=== PATIENT | female | born 1940 | race Caucasian/White ===

== ENCOUNTER → 2017-10-26 | Day surgery (SDC) | payer MEDICARE, BC ==
[~2017-10-26] MED LIST: Bupivacaine 0.25% 10 ML SDV ONE; Dexamethasone 4 MG/ML SDV ONE; Diphtheria,Pertussis(Acell),Tetanus Vaccine 0.5 ML SDV IM ONE; HYDROmorphone 0.5 MG/0.5 ML Syringe IVPUSH ONE; HYDROmorphone 0.5 MG/0.5 ML Syringe IVPUSH PRN; HYDROmorphone 0.5 MG/0.5 ML Syringe ONE; Iopamidol 755 Mg/ML 100 ML Bottle IVPUSH ONE; Lidocaine 1% 4 ML ONE; Ondansetron 4 MG/2 ML SDV IVPUSH PRN; Ondansetron 4 MG/2 ML SDV ONE; Phenylephrine/Normal Saline 100 MCG/ML 10 ML Syringe ONE; Propofol 200 MG/20 ML SDV ONE; Sodium Chloride 0.9% 1,000 ML IV ONE; Sodium Chloride 0.9% 10 ML Syringe FLUSH PRN; ceFAZolin 1 GM Vial ONE; ceFAZolin 1 GM in Premix Bag 1 BAG IV ONE; diphenhydrAMINE 50 MG/ML SDV IVPUSH PRN; ePHEDrine/Normal Saline 25 MG/5 ML Syringe ONE; fentaNYL 100 MCG/2 ML SDV IVPUSH ONE; fentaNYL 100 MCG/2 ML SDV IVPUSH PRN; fentaNYL 100 MCG/2 ML SDV ONE; fentaNYL 250 MCG/5 ML SDV ONE
--- NOTE | 2017-10-26 22:35 | EDM.PDOC ---
ED HPI GENERAL MEDICAL PROBLEM - General Chief Complaint: Upper Extremity Injury/Pain Stated Complaint: [facility] Time Seen by Provider: 10/26/17 21:13 Source of Information: Reports: Patient History Limitations: Reports: No Limitations - History of Present Illness INITIAL COMMENTS - FREE TEXT/NARRATIVE: 76-year-old female arrives via [facility] for evaluation treatment of her right arm injury. Reportedly the patient fell down approximately 3 steps. She has an obvious abnormality to the right elbow on the right wrist. Open area to the right antecubital fossa. She may have passed out momentarily. Her did not witness the fall but seems to think that she passed out after the fall. She denies any headaches, vision changes, neck pain, back pain, chest pain, shortness of breath, abdominal pain, lightheadedness, dizziness, pain in the legs or left arm. Unsure of last tetanus. Patient is not on any blood thinners. Last intake was around noon. Location: Reports: Upper Extremity, Right Treatments SPUDDER: Reports: IV/IO Right Arm Pain Score (Numeric/FACES): 4 - Related Data Allergies Allergy/AdvReac Type Severity Reaction Status Date / Time Penicillins Allergy Rash Verified 10/26/17 21:10 Home Meds: Home Meds Albuterol Sulfate [Ventolin Hfa] 18 gm IH 10/26/17 [History] Blood Pressure Med. 10/26/17 [History] Review of Systems - Review of Systems Review Of Systems: See Below Eyes: Denies: Blurred Vision, Vision Change Ears: Denies: Dizziness Respiratory: Denies: Shortness of Breath Cardiovascular: Denies: Chest Pain, Lightheadedness GI/Abdominal: Denies: Abdominal Pain, Nausea, Vomiting Musculoskeletal: Reports: Arm Pain (right). Denies: Neck Pain, Back Pain Skin: Reports: Wound Neurological: Reports: Syncope (questionable). Denies: Dizziness, Headache ED EXAM, GENERAL - Physical Exam Exam: See Below Exam Limited By: No Limitations General Appearance: Alert, WD/WN, No Apparent Distress, Other (AxOx3) Eye Exam: Bilateral Eye: Normal Inspection, PERRL Ears: Normal External Exam Nose: Normal Inspection, No Blood Throat/Mouth: Normal Inspection, Normal Lips, Normal Voice, No Airway Compromise Head: Atraumatic, Normocephalic Neck: Normal Inspection, Supple, Non-Tender, Full Range of Motion Respiratory/Chest: No Respiratory Distress, Lungs Clear, Normal Breath Sounds, Chest Non-Tender Cardiovascular: Normal Peripheral Pulses, No Murmur, Tachycardia Peripheral Pulses: 1+: Radial (R), 2+: Posterior Tibial (L), Posterior Tibial (R ), Dorsalis Pedis (L), Dorsalis Pedis (R) GI/Abdominal: Normal Bowel Sounds, Soft, Non-Tender Back Exam: Normal Inspection. No: Vertebral Tenderness Extremities: Other (obvious deformity to the right elbow and right wrist; open fracture right elbow; pelvis stable; no pain with rotation to the hips) Neurological: Alert, Oriented, Normal Cognition Psychiatric: Normal Affect, Normal Mood Skin Exam: Warm, Dry, Normal Color, Other (approximately 2cm open laceration to the right antecubital fossa with bone showing) EKG INTERPRETATION EKG Date: 10/26/17 Time: 22:15 Rhythm: NSR Rate (Beats/Min): 83 [place]: Normal P-Wave: Present QRS: Normal ST-T: Normal QT: Normal EKG Interpretation Comments: NSR at 83 bpm. Borderline prolonged QT interval. Reviewed by myself and Dr. Rey. Course - Vital Signs Last Recorded V/S: Last Vital Signs Temp 36.9 C 10/26/17 21:10 Pulse 97 10/26/17 21:10 Resp 18 10/26/17 23:14 BP 150/91 H 10/26/17 21:10 Pulse Ox 98 10/26/17 23:14 - Orders/Labs/Meds Orders: Active Orders 24 hr Category Date Time Status Admission Status [Patient Status] [ADT] Routine ADT 10/26/17 23:03 Active Cardiac Monitoring [RC] . DIRECTED Care 10/26/17 22:31 Active EKG 12 Lead [EKG Documentation Completion] [RC] STAT Care 10/26/17 21:23 Active Oxygen Therapy, ED [RC] ASDIRECTED Care 10/26/17 22:44 Active Peripheral IV Care [RC] . DIRECTED Care 10/26/17 21:24 Active Vaccines to be Administered [RC] PER UNIT ROUTINE Care 10/26/17 21:29 Active Cervical Spine wo Cont [CT] Routine Exams 10/27/17 Taken Chest 1V Frontal [CR] Stat Exams 10/26/17 21:23 Taken Chest Abdomen Pelvis w Cont [CT] Routine Exams 10/27/17 Taken Clavicle Rt [CR] Stat Exams 10/26/17 22:21 Taken Fluoro Up To 1Hr [CR] Stat Exams 10/26/17 23:13 Ordered Forearm 2V Rt [CR] Stat Exams 10/26/17 21:23 Taken Head wo Cont [CT] Stat Exams 10/26/17 21:23 Taken Humerus Rt [CR] Stat Exams 10/26/17 21:23 Taken Sodium Chloride 0.9% [Normal Saline] 1,000 ml Med 10/26/17 21:25 Active IV ONETIME Sodium Chloride 0.9% [Saline Flush] Med 10/26/17 21:23 Active 10 ml FLUSH ASDIRECTED PRN Peripheral IV Insertion Adult [OM.PC] Routine Oth 10/26/17 21:23 Ordered Schedule Procedure [COMM] Stat Oth 10/26/17 22:59 Ordered Schedule Procedure [COMM] Stat Oth 10/26/17 23:03 Ordered Medication Orders Sodium Chloride (Normal Saline) 1,000 mls @ 75 mls/hr IV ONETIME ONE Stop: 10/27/17 10:44 Last Admin: 10/26/17 22:07 Dose: 75 mls/hr Sodium Chloride (Saline Flush) 10 ml FLUSH ASDIRECTED PRN PRN Reason: Keep Vein Open Last Admin: 10/26/17 22:08 Dose: 10 ml Labs: Laboratory Tests 10/26/17 10/26/17 10/26/17 Range/Units 22:53 22:53 22:53 WBC 10.21 H (3.98-10.04) K/mm3 RBC 2.91 L (3.98-5.22) M/mm3 Hgb 9.8 L (11.2-15.7) gm/L Hct 30.2 L (34.1-44.9) % MCV 103.8 H (79.4-94.8) fl MCH 33.7 H (25.6-32.2) pg MCHC 32.5 (32.2-35.5) g/dl RDW Std Deviation 52.8 H (36.4-46.3) fL Plt Count 395 H (182-369) K/mm3 MPV 8.9 L (9.4-12.3) fl Neut % (Auto) 78.2 H (34.0-71.1) % Lymph % (Auto) 10.5 L (19.3-51.7) % Summers % (Auto) 4.9 (4.7-12.5) % Eos % (Auto) 3.9 (0.7-5.8) Baso % (Auto) 2.1 H (0.1-1.2) % Neut # (Auto) 7.99 H (1.56-6.13) K/mm3 Lymph # (Auto) 1.07 L (1.18-3.74) K/mm3 Summers # (Auto) 0.50 H (0.24-0.36) K/mm3 Eos # (Auto) 0.40 H (0.04-0.36) K/mm3 Baso # (Auto) 0.21 H (0.01-0.08) K/mm3 PT 9.6 (8.0-13.0) SECONDS INR 0.89 APTT 24 (22-36) SECONDS Sodium 135 L (136-145) mEq/L Potassium 3.9 (3.5-5.1) mEq/L Chloride 102 (98-107) mEq/L Carbon Dioxide 21 (21-32) mEq/L Anion Gap 15.9 H (5-15) BUN 29 H (7-18) mg/dL Creatinine 1.7 H (0.55-1.02) mg/dL Est Cr Clr Drug Dosing 26.79 mL/min Estimated GFR (MDRD) 29 (>60) mL/min BUN/Creatinine Ratio 17.1 (14-18) Glucose 169 H (83-115) mg/dL Calcium 9.0 (8.5-10.1) mg/dL Total Bilirubin 0.2 (0.2-1.0) mg/dL AST 31 (15-37) U/L ALT 27 (14-59) U/L Alkaline Phosphatase 85 (46-116) U/L Total Protein 6.3 L (6.4-8.2) g/dl Albumin 3.3 L (3.4-5.0) g/dl Globulin 3.0 gm/dL Albumin/Globulin Ratio 1.1 (1-2) Ethyl Alcohol 0.17 (0.00) gm% Meds: Medications Generic Name Dose Route Start Last Admin Trade Name Freq PRN Reason Stop Dose Admin Sodium Chloride 1,000 mls @ 75 mls/hr 10/26/17 21:25 10/26/17 22:07 Normal Saline IV 10/27/17 10:44 75 mls/hr ONETIME ONE Administration Sodium Chloride 10 ml 10/26/17 21:23 10/26/17 22:08 Saline Flush FLUSH 10 ml ASDIRECTED PRN Administration Keep Vein Open Discontinued Medications Generic Name Dose Route Start Last Admin Trade Name Leatha PRN Reason Stop Dose Admin Bupivacaine HCl Confirm 10/26/17 23:40 Sensorcaine-Mpf 0.25% Administered 10/26/17 23:41 Dose 30 ml .ROUTE .STK-MED ONE Cefazolin Sodium Confirm 10/27/17 01:34 Ancef Administered 10/27/17 01:35 Dose 2 gm .ROUTE .STK-MED ONE Diphtheria/Tetanus/Acell Pertussis 0.5 ml 10/26/17 21:29 10/26/17 22:06 Adacel IM 10/26/17 21:30 0.5 ml .ONCE ONE Administration Ephedrine Sulfate Confirm 10/27/17 01:37 Ephedrine In Ns Administered 10/27/17 01:38 Dose 25 mg .ROUTE .STK-MED ONE Fentanyl 50 mcg 10/26/17 22:17 10/26/17 22:26 Sublimaze IVPUSH 10/26/17 22:18 50 mcg ONETIME ONE Administration Fentanyl 50 mcg 10/26/17 22:56 10/26/17 23:00 Sublimaze IVPUSH 10/26/17 22:57 50 mcg ONETIME ONE Administration Fentanyl Confirm 10/26/17 23:02 Sublimaze Administered 10/26/17 23:03 Dose 100 mcg .ROUTE .STK-MED ONE Hydromorphone HCl 0.5 mg 10/26/17 22:00 10/26/17 22:05 Dilaudid IVPUSH 10/26/17 22:01 0.5 mg ONETIME ONE Administration Hydromorphone HCl Confirm 10/26/17 22:07 10/26/17 22:08 Dilaudid Administered 10/26/17 22:08 Not Given Dose 0.5 mg .ROUTE .STK-MED ONE Cefazolin Sodium/Dextrose 1 gm 50 mls @ 100 mls/hr 10/26/17 22:30 10/26/17 22 :44 / Premix IV 12/11/17 22:59 100 mls/hr ONETIME ONE Administration Iopamidol 100 ml 10/27/17 00:09 Isovue-370 (76%) IVPUSH 10/27/17 00:10 ONETIME ONE Phenylephrine HCl Confirm 10/27/17 01:37 Phenylephrine In Ns 100 Mcg/Ml Administered 10/27/17 01:38 Dose 1 mg .ROUTE .[facility] ONE - Radiology Interpretation Free Text/Narrative:: CT of the head without contrast impression per vrad: Acute on subacute left frontal parietal subdural hematoma measuring 4 mm in maximum thickness. No significant mass effect on the underlying brain parenchyma. 2. Subacute appearing nondisplaced fracture of the left frontal bone. CT of the cervical spine without contrast impression per [facility] 1. Nondisplaced fracture line involving the C2 left pedicle/transverse process, extending to the superior articular facet of the at low axilla joint. The atlantooccipital and atlantoaxial articulations appear otherwise intact. 2. No traumatic subluxation. CT of the chest, abdomen and pelvis with IV contrast impression per vrad: 1. Comminuted fracture of the right superior pubic ramus. Minimally displaced fracture of the right inferior pubic ramus. Right retropubic hematoma. No definitive evidence of urinary bladder injury. 2. Comminuted displaced fracture of the right sacral all up. 3. 11th and 12th rib acute fractures. xray of the chest shows no acute fractures, no pneumothorax or hemothorax. X-ray of the right clavicle so shows no acute fractures. X-ray of the right humerus shows no acute fractures. X-ray of the right forearm shows a displaced distal right radius and ulna fracture. Dislocated right elbow. - Re-Assessments/Exams Free Text/Narrative Re-Assessment/Exam: 10/26/17 22:55 Patient frequently initially declined pain medication upon arrival to the ER. She received 50 mcgs of fentanyl by EMS. After having her x-rays done she did require pain medication. 0.5 mg of Dilaudid given. Did not provide much pain relief so she was given an additional 50 mcg of fentanyl. unfortunately, due to her orders not crossing, the head CT was missed initially. currently awaiting a head CT. She has an obvious right elbow dislocation that is open. She also has a dislocated right right distal radius and ulna fracture. 12/12/17 01:[address] Álvarez, orthopedics on-call. He agrees to come to the ER for reduction of the elbow in the OR. Prior to surgery, the CT of the head without IV contrast returned. Impression is a acute on subacute left frontal parietal subdural hematoma measuring 4 mm in maximum thickness. I then called [facility] in [place] to speak with neurosurgery regarding this patient with her subdural hematoma. She has neurovascular compromise to the right extremity needs to go to the OR emergently for reduction. Unable to get a hold of neurosurgery at [facility] in [place]. I then called [facility] in [place] to speak with their neurosurgeon. Unable to get a hold of their neurosurgeon. Finally, we are able to get hold of Dr. Pineda, neurosurgery on-call. He states that she is okay to go to the OR tonight for the elbow reduction. He states that he will see her tomorrow when he comes to [place]. I spoke with our imaging system administrator, Kimberly Godoy, regarding this. She states he does not have privileges here in [place] therefore she cannot be seen by neurosurgery in [place]. I spoke with our hospice, Dr. Hyde, she feels that she needs neurosurgery and recommended transfer to [place] after the reduction. 10/27/17 02:11 10/27/17 02:34 Patient is currently out of the OR. She is in recovery. Doing well. Remainder CT reports returned. [facility] notified of additional findings on CT. Case was discussed with Dr. Rasheed, trauma surgery, at [facility] as well as Dr. Pineda, neurosurgery at [facility]. Dr. Rasheed recommended a c- collar. She was placed in a c-collar immediately as soon as this fracture to the C2 was found. She was in recovery at this time. Orthopedics on-call at [facility], , was made aware of additional fracture findings. Dr. Álvarez, orthopedics vector control specialist was also reviewed these images and does not feel that her pelvic fractures are operable or unstable. Current plan is to send the patient to [facility] in [place] by ground ambulance after she has recovered in the OR. She will go through the ER at [facility]. I informed the patient's of her findings. Her blood alcohol was 0.17 tonight. He states that he knows that she drinks but is a "closet drinker." He is unaware of how much alcohol she consumes. He states that she has fallen 3 times in the last 6 months. This is the first time she has been evaluated for fall. Departure - Departure Time of Disposition: 02:41 Disposition: DC/Tfer to Acute Hospital 02 Condition: Serious Clinical Impression: Subdural hematoma, Ribs, multiple fractures, Fracture of sacrum, Pelvic fracture, Radius and ulna distal fracture, Elbow dislocation Closed C2 fracture Qualifiers: Encounter type: initial encounter Fracture alignment: nondisplaced - Discharge Information - My Orders Last 24 Hours: My Active Orders 10/26/17 21:23 EKG 12 Lead [EKG Documentation Completion] [RC] STAT Chest 1V Frontal [CR] Stat Forearm 2V Rt [CR] Stat Head wo Cont [CT] Stat Humerus Rt [CR] Stat Sodium Chloride 0.9% [Saline Flush] 10 ml FLUSH ASDIRECTED PRN Peripheral IV Insertion Adult [OM.PC] Routine 10/26/17 21:24 Peripheral IV Care [RC] . DIRECTED 10/26/17 21:25 Sodium Chloride 0.9% [Normal Saline] 1,000 ml IV ONETIME 10/26/17 21:29 Vaccines to be Administered [RC] PER UNIT ROUTINE 10/26/17 22:21 Clavicle Rt [CR] Stat 10/26/17 22:31 Cardiac Monitoring [RC] . DIRECTED 10/26/17 22:44 Oxygen Therapy, ED [RC] ASDIRECTED 10/26/17 23:03 Admission Status [Patient Status] [ADT] Routine Schedule Procedure [COMM] Stat 10/27/17 Cervical Spine wo Cont [CT] Routine Chest Abdomen Pelvis w Cont [CT] Routine - Assessment/Plan Last 24 Hours: My Active Orders 10/26/17 21:23 EKG 12 Lead [EKG Documentation Completion] [RC] STAT Chest 1V Frontal [CR] Stat Forearm 2V Rt [CR] Stat Head wo Cont [CT] Stat Humerus Rt [CR] Stat Sodium Chloride 0.9% [Saline Flush] 10 ml FLUSH ASDIRECTED PRN Peripheral IV Insertion Adult [OM.PC] Routine 10/26/17 21:24 Peripheral IV Care [RC] . DIRECTED 10/26/17 21:25 Sodium Chloride 0.9% [Normal Saline] 1,000 ml IV ONETIME 10/26/17 21:29 Vaccines to be Administered [RC] PER UNIT ROUTINE 10/26/17 22:21 Clavicle Rt [CR] Stat 10/26/17 22:31 Cardiac Monitoring [RC] . DIRECTED 10/26/17 22:44 Oxygen Therapy, ED [RC] ASDIRECTED 10/26/17 23:03 Admission Status [Patient Status] [ADT] Routine Schedule Procedure [COMM] Stat 10/27/17 Cervical Spine wo Cont [CT] Routine Chest Abdomen Pelvis w Cont [CT] Routine
--- NOTE | 2017-10-26 23:15 | PCM.PREANE ---
Preanesthetic Assessment - Procedure Proposed Procedure: Closed reduction right elbow - Anesthesia/Transfusion/Family Hx Anesthesia History: Prior Anesthesia Without Reaction Family History of Anesthesia Reaction: No Transfusion History: No Prior Transfusion(s) - Review of Systems General: No Symptoms Pulmonary: Other (Pt has asthma and used inhaler daily) Cardiovascular: Other (HTN, thinks she has had high cholesterol at one time ) Gastrointestinal: No Symptoms Neurological: No Symptoms Other: Reports: None - Physical Assessment NPO Status Date: 10/26/17 NPO Status Time: 12:00 O2 Sat by Pulse Oximetry: 98 Respiratory Rate: 18 Vital Signs: Last Vital Signs Temp 36.9 C 10/26/17 21:10 Pulse 97 10/26/17 21:10 Resp 18 10/26/17 21:10 BP 150/91 H 10/26/17 21:10 Pulse Ox 88 L 10/26/17 23:07 Height: 1.7 m Weight: 61.235 kg ASA Class: 2E Mental Status: Alert & Oriented x3 Airway Class: Mallampati = 2 Dentition: Reports: Dentures (upper) Thyro-Mental Finger Breadths: 3 Mouth Opening Finger Breadths: 3 ROM/Head Extension: Full Lungs: Clear to Auscultation, Normal Respiratory Effort Cardiovascular: Regular Rate, Regular Rhythm - Allergies Allergies/Adverse Reactions: Allergies Allergy/AdvReac Type Severity Reaction Status Date / Time Penicillins Allergy Rash Verified 10/26/17 21:10 - Blood Blood Available: No Product(s) Available: None - Anesthesia Plan Pre-Op Medication Ordered: None - Acknowledgements Anesthesia Type Planned: General Anesthesia Pt an Appropriate Candidate for the Planned Anesthesia: Yes Alternatives and Risks of Anesthesia Discussed w Pt/Guardian: Yes Pt/Guardian Understands and Agrees with Anesthesia Plan: Yes PreAnesthesia Questionnaire - CURRENT (IN HOUSE) MEDS Current Meds: Current Medications Sodium Chloride (Normal Saline) 1,000 mls @ 75 mls/hr IV ONETIME ONE Stop: 10/27/17 10:44 Last Admin: 10/26/17 22:07 Dose: 75 mls/hr Sodium Chloride (Saline Flush) 10 ml FLUSH ASDIRECTED PRN PRN Reason: Keep Vein Open Last Admin: 10/26/17 22:08 Dose: 10 ml Discontinued Medications Diphtheria/Tetanus/Acell Pertussis (Adacel) 0.5 ml IM .ONCE ONE Stop: 10/26/17 21:30 Last Admin: 10/26/17 22:06 Dose: 0.5 ml Fentanyl (Sublimaze) 50 mcg IVPUSH ONETIME ONE Stop: 10/26/17 22:18 Last Admin: 10/26/17 22:26 Dose: 50 mcg Fentanyl (Sublimaze) 50 mcg IVPUSH ONETIME ONE Stop: 10/26/17 22:57 Last Admin: 10/26/17 23:00 Dose: 50 mcg Fentanyl (Sublimaze) Confirm Administered Dose 100 mcg .ROUTE .STK-MED ONE Stop: 10/26/17 23:03 Hydromorphone HCl (Dilaudid) 0.5 mg IVPUSH ONETIME ONE Stop: 10/26/17 22:01 Last Admin: 10/26/17 22:05 Dose: 0.5 mg Hydromorphone HCl (Dilaudid) Confirm Administered Dose 0.5 mg .ROUTE .STK-MED ONE Stop: 10/26/17 22:08 Last Admin: 10/26/17 22:08 Dose: Not Given Cefazolin Sodium/Dextrose 1 gm (/ Premix) 50 mls @ 100 mls/hr IV ONETIME ONE Stop: 10/26/17 22:59 Last Admin: 10/26/17 22:44 Dose: 100 mls/hr
--- NOTE | 2017-10-27 02:20 | PCM.POSTAN ---
POST ANESTHESIA ASSESSMENT - MENTAL STATUS Mental Status: Alert, Oriented - VITAL SIGNS Pulse Rate: 137 SaO2: 93 Resp Rate: 23 Blood Pressure: 137/103 Temperature: 36.9 C - RESPIRATORY Respiratory Status: Respiratory Rate WNL, Airway Patent, O2 Saturation Stable, Supplemental Oxygen - CARDIOVASCULAR CV Status: Pulse Rate WNL, Blood Pressure Stable - GASTROINTESTINAL GI Status: No Symptoms - POST OP HYDRATION Hydration Status: Adequate & Stable
--- NOTE | 2017-10-27 02:54 | PCM48HPAN ---
Post Anesthesia Note - EVALUATION WITHIN 48HRS OF ANESTHETIC Vital Signs in Normal Range: Yes Patient Participated in Evaluation: Yes Respiratory Function Stable: Yes Airway Patent: Yes Cardiovascular Function Stable: Yes (slightly tachycardic at 120, will be transferred to ED to be tx to [facility]) Hydration Status Stable: Yes Pain Control Satisfactory: Yes (denies pain) Nausea and Vomiting Control Satisfactory: Yes Mental Status Recovered: Yes
--- NOTE | 2017-10-27 08:04 | CT ---
Head CT Technique: Multiple axial sections through the brain were obtained. Intravenous contrast was not utilized. Comparison: No previous intracranial imaging is available. Findings: Ventricles along with basal cisterns and sulci over the convexities are moderately prominent. Small subacute subdural hematoma is seen overlying the left sided convexity. There is a small amount of acute blood being superimposed within this subacute subdural collection. Thickness of this subdural collection measures about 4 mm. This causes no significant mass effect at this time on underlying brain. Mild basal ganglia calcification is seen. Mild areas of diminished density are noted within the periventricular and subcortical white matter compatible with small vessel ischemic demyelination change. No parenchymal hemorrhage is seen. Minimal lucency is seen within the left frontal bone possibly due to old injury. No acute calvarial abnormality is seen. Mucosal thickening is noted within the ethmoid, sphenoid and maxillary sinuses. Impression: 1. Small left-sided subdural hematoma with a small amount of acute blood. This causes no significant mass effect at this time and has a thickness of about 4 mm. 2. Sinus findings as noted above most likely representing chronic sinusitis. 3. Senescent change as noted above. No acute intracranial abnormality is identified. Diagnostic code #3 Agree with preliminary report issued by [employer] ([employer] preliminary report dictated on 10/27/17, 12:40 AM Central Time)
--- NOTE | 2017-10-27 08:04 | CT ---
CT chest Technique: Multiple axial sections were obtained from above the lung apices inferiorly through the lung bases. Intravenous contrast was utilized. Findings: Incidental lipoma identified within the posterior right shoulder measuring 4.1 cm. Mediastinum and hilar regions are unremarkable. Mild atherosclerotic calcification is seen within the thoracic aorta as well as mild coronary artery calcification. Slight right basilar atelectasis is noted. No pulmonary contusions or acute pulmonary densities are seen. Several healed left-sided rib fractures are noted. Acute rib fracture seen within the right 12th rib. Sagittal views show no compression deformity within the thoracic spine. Impression: 1. 12th rib fracture. 2. Other incidental findings. No other acute finding is appreciated on CT study of the chest. Diagnostic code #3 I agree with preliminary report issued by [employer] ([employer] preliminary report dictated on 10/27/17, 2:49 AM Central Time) CT abdomen and pelvis Technique: Multiple axial sections were obtained through the abdomen and pelvis. Intravenous contrast was utilized. No oral contrast has been given. Comparison: No prior study. Findings: Liver shows fatty infiltration. No focal abnormality identified within the liver. Spleen appears within normal limits. Adrenal glands show no nodule. Pancreas is within normal limits. Kidneys show cysts without hydronephrosis or other abnormality. Aorta shows diffuse atherosclerotic change with mild ectasia. No focal aneurysm is seen. No retroperitoneal adenopathy is seen. Appendix is identified and appears normal in size. Diverticulosis noted within the descending and sigmoid colons without inflammatory change of diverticulitis. No free fluid or inflammatory change seen within the abdomen or within the pelvis. Atrophy is incidentally noted to the right side of the rectus muscle. Fractures are seen within the inferior and superior right pubic ramus. Fracture noted within the right sacral ala which is nondisplaced. No compression deformity seen within the lumbar spine. Soft tissue thickening seen within the right obturator internus muscle as compared the left side most likely relating to the right sided pubic rami fractures. Impression: 1. Fractures of the right superior and inferior pubic rami. Thickening of the right adjacent obturators internus muscle most likely representing change from the adjacent bony trauma. 2. Nondisplaced fracture within the right sacral ala. 3. Other incidental findings which are nonacute as described above. Diagnostic code #3 Agree with preliminary report issued by [employer] ([employer] preliminary report dictated on 10/27/17, 2:49 AM Central Time)
--- NOTE | 2017-10-27 08:04 | CR ---
Right humerus: Two views of the right humerus were obtained. Dislocated elbow is again noted. Osteopenia is noted. No proximal abnormality is seen within the humerus. Impression: 1. Dislocated right elbow. Osteopenia. 2. No additional abnormality is appreciated. Diagnostic code #3
--- NOTE | 2017-10-27 08:04 | CT ---
CT cervical spine Technique: Multiple axial sections were obtained from above C1 inferiorly to the bottom of T1. Reconstructed sagittal and coronal images were reviewed. Comparison: No prior cervical spine imaging. Findings: Mastoid sinuses and middle ear cavities are clear. Posterior skull base is intact. Mild degenerative change is noted between the dens and anterior arch of C1. Fracture is identified to the left side of C2 within the lateral mass involving both pedicle and superior articular facet. No displacement is seen. No additional fracture is seen within C2. Ligamentum nuchal calcification is seen. Scattered degenerative change is seen within the apophyseal joints. Slight disc space narrowing is noted at C4-C5 and C5-C6. Mild anterior osteophytes and disc bulging anteriorly at C5-C6. No additional fracture is seen. No abnormal subluxation is seen. Mild scoliosis is seen. Joint space narrowing is noted within both temporomandibular joints which is degenerative in etiology. Impression: 1. Degenerative change and other incidental findings. 2. Nondisplaced fracture to the left side of C2 within the lateral mass involving both pedicle and superior articular facet. No additional fracture within C2 is seen. 3. No additional fracture within other portions of the cervical spine are seen. Diagnostic code #3 Agree with preliminary report issued by [facility] ([facility] preliminary report dictated on 10/27/17, 2:33 AM Central Time)
--- NOTE | 2017-10-27 08:04 | CR ---
Chest: Frontal view of the chest was obtained. Comparison: No previous study. Heart size is normal. Mild tortuosity of the thoracic aorta is seen. Incidental discoid atelectasis is noted within the left base. Lungs otherwise are clear. Old healed left rib fractures are seen within the fifth and sixth ribs. Impression: 1. Incidental findings. Nothing acute is appreciated. Diagnostic code #2
--- NOTE | 2017-10-27 08:04 | CR ---
Right shoulder: Two views of the right shoulder were obtained. Comparison: No previous shoulder exam. Osteopenia is noted. Glenohumeral joint is within normal limits. No acute fracture or other abnormality is appreciated. Impression: 1. Osteopenia. 2. Nothing acute is appreciated on two-view right shoulder study. Diagnostic code #2
--- NOTE | 2017-10-27 08:04 | CR ---
Forearm: Multiple fluoroscopic spot views were obtained utilizing C-arm device. Comparison: Prior plain film studies performed on 10/26/17. Previous elbow dislocation has been reduced. Displaced distal radial fracture shows significantly improved reduction. Small avulsion fracture is noted off the ulnar styloid process. Final film shows plaster cast in place. Fluoroscopy time not given at time of dictation. Impression: 1. Reduced elbow dislocation. Significantly improved reduction of previous displaced distal radial fracture. Diagnostic code #2
--- NOTE | 2017-10-27 08:04 | CR ---
Right forearm: Two views of the right forearm were obtained. Comparison: No prior study. Dislocation is noted within the elbow. Radius and ulna are displaced posteriorly. Soft tissue air is seen around the elbow. Displaced distal radial fracture is noted. Soft tissue swelling is seen within the wrist and elbow. Impression: 1. Displaced distal radial fracture. 2. Dislocated elbow. Diagnostic code #5
--- NOTE | 2017-10-30 10:17 | PCM.CONS ---
H&P History of Present Illness - General Date of Service: 10/26/17 Admit Problem/Dx: Admission Diagnosis/Problem Admission Diagnosis/Problem Elbow injury Source of Information: Patient, Provider History Limitations: Reports: Other (alcohol abuse) - History of Present Illness Initial Comments - Free Text/Narative: This is a 76 year old female that comes in to the ED with complaint of right elbow and wrist pain. She states that she lost her balance and fell down 2 stairs this evening and landed on her right upper extremity and had immediate pain and deformity. She was able to ambulate afterwards and was taken to the ED where she was found to have an open posterior elbow dislocation along with a grade 1 open distal radius fracture. She was also sent by the ED physician for a CT of her head and was found to have a subdural hematoma as well. I was consulted secondary to the right upper extremity. Patient denies pain elsewhere other than her right arm. She denies previous pain or injury to this arm and states she is right hand dominant. Patient received a gram of Ancef in the ED with tetanus update. Right Arm Pain Score (Numeric/FACES): 4 - Related Data Allergies/Adverse Reactions: Allergies Allergy/AdvReac Type Severity Reaction Status Date / Time Penicillins Allergy Rash Verified 10/26/17 21:10 Home Medications: Home Meds Albuterol Sulfate [Ventolin Hfa] 18 gm IH 10/26/17 [History] Blood Pressure Med. 10/26/17 [History] Past Medical History Cardiovascular History: Reports: High Cholesterol, Hypertension - Past Surgical History GI Surgical History: Reports: Cholecystectomy Social & Family History - Tobacco Use Smoking Status *Q: Unknown Ever Smoked H&P Review of Systems - Review of Systems: Review Of Systems: ROS reveals no pertinent complaints other than HPI. Exam - Exam Exam: See Below - Vital Signs Vital Signs: Last Vital Signs Temp 36.8 C 10/27/17 02:40 Pulse 137 H 10/27/17 02:20 Resp 17 10/27/17 02:55 BP 155/104 H 10/27/17 02:55 Pulse Ox 96 10/27/17 02:55 Weight: 61.235 kg - Exam Physical Exam Comments:: RUE: patient has noticeable deformity to right elbow with exposed bone as well as deformity to right wrist, no tenderness to clavicle or shoulder, able to flex /extend the right thumb, abduct and adduct the fingers, oppose the thumb, sensation intact to light touch to the radial, ulnar, median nerve distribution , skin shows a small 3mm laceration on the volar aspect of right wrist with no exposed bone, right elbow has a 3.5cm laceration in the antecubital fossa LUE: no signs of deformity and no tenderness to palpation BLE: pelvis no pain with ap or lateral compression she is moving bilateral lower extremities and is neurovascularly intact - Patient Data Result Diagrams: 10/26/17 22:53 10/26/17 22:53 Consult PN Assessment/Plan Problem List Initiated/Reviewed/Updated: Yes Plan: A: open right posterior elbow dislocation and grade 1 open right distal radius fracture P: At this time did discuss that this is a surgical emergency secondary to the open nature of the injuries. At this time we did wait for clearance in the ED from a neurosurgeon after they had reviewed her radiographs. We were subsequently given clearance. The risks, benefits, complications,and alternatives were discussed with her and her . Patient will undergo irrigation and debridement of the right elbow and wrist along with closed reduction of the right elbow dislocation and right distal radius fracture.
--- NOTE | 2017-10-30 12:57 | PCM.OPNOTE ---
- General Post-Op/Procedure Note Date of Surgery/Procedure: 10/26/17 Operative Procedure(s): irrigation and debridement of right open elbow dislocation and grade 1 open right distal radius fracture with closed reduction Pre Op Diagnosis: 1. Grade 1 open right distal radius and ulna fractures. 2. Right open posterior elbow dislocation Post-Op Diagnosis: Same Anesthesia Technique: General LMA Primary Surgeon: Benji Álvarez Anesthesia Provider: Karlos Ram EBL in mLs: 10 Complications: None Condition: Good
--- NOTE | 2017-11-02 08:23 | OR ---
DATE OF OPERATION: 10/26/2017 SURGEON: Benji Álvarez MD OPERATION PERFORMED: 1. Irrigation and debridement of right open elbow dislocation. 2. Irrigation and debridement grade 1 open right distal radius fracture with closed reduction of both elbow dislocation and right distal radius. PREOPERATIVE DIAGNOSIS: 1. Grade 1 open right distal radius and ulnar fractures. 2. Open right posterior elbow dislocation. POSTOPERATIVE DIAGNOSIS: 1. Grade 1 open right distal radius and ulnar fractures. 2. Open right posterior elbow dislocation. ANESTHESIA: General LMA. ANESTHESIA PROVIDER: Karlos Ram MD. STORYBOARD ARTIST: None. ESTIMATED BLOOD LOSS: 10 mL. COMPLICATIONS: None. CONDITION: Stable. DESCRIPTION OF PROCEDURE: The patient was identified in the emergency department where proper site was marked and identified by surgeon. The patient was taken back to the operating theater, where after adequate anesthesia, the patient's right upper extremity was sterilely prepped and draped in usual sterile fashion. OR time-out was performed. The patient received 2 g of IV Ancef. At this time, the right upper extremity elbow dislocation had 3 L of normal saline run through it and all soft tissue nonviable in this region and cubital fossa was debrided out and it was less than 3 square cm. At this time, once this was completed, another 3 L was irrigated through the right open distal radius. I did make a longitudinal incision as it was just a small poke hole open and I did make a 1 cm to 2 cm open area so that we could debride the soft tissue. Once this was completed, with 2 or 3 L bags of normal saline, the posterior elbow dislocation was reduced and it was easily reduced at this time. It was found to be unstable in full extension, but I was able to get the patient out to roughly 20 to 30 degrees of extension with it still concentrically reduced. As far as the distal radius, the distal radius fracture was unstable, but at this time secondary to the patient's intracranial bleed and unknown status, at this time, we did triage the patient just for closed reduction. A 4-0 Nylon simple sutures was used for closure of both the open areas both distally and at the right distal radius and proximally. Xeroform and 4x4s and sterile soft dressing was applied. Next, sugar-tong splint along with a posterior slab plaster were applied to the patient's right upper extremity with reduction of 3-point molding held to the right distal radius and ulna, which was found to have adequate reduction. At this time, the patient was sent to the PACU in stable condition and will be transferred to [place], secondary to the intracranial bleed. MMODAL /[id number]
== END ==
LOC: JD.ED 21:04 → JD.SDS 23:28
PROVIDERS: ATTEND Orthopaedic Surgery
DX: S52.501B Unspecified fracture of the lower end of right radius, initial encounter for open fracture type I or II (principal); S52.201B Unspecified fracture of shaft of right ulna, initial encounter for open fracture type I or II; S53.124A Posterior dislocation of right ulnohumeral joint, initial encounter; I10 Essential (primary) hypertension; E78.00 Pure hypercholesterolemia, unspecified; Z88.0 Allergy status to penicillin; Z79.899 Other long term (current) drug therapy; W10.9XXA Fall (on) (from) unspecified stairs and steps, initial encounter
CPT/HCPCS: 11043; 24600; 25605; 36415; 51702; 70450; 71010; 73000; 73060; 73090; 76000; 80053; 85025; 85610; 85730; 90715; 93005; 96361; 96365; 96375; 96376; 99285; G0480; J0690; J1100; J1170; J2405; J3010; J7040; J7050; 01730; 71260; 71260-26; 72125; 72125-26; 74177; 74177-26; J2704